=== PATIENT | female | born 1975 | race African-American/Black ===

== ENCOUNTER 2016-05-28 18:06 | Emergency (ER) | payer BC, MEDICAID, OTHER ==
[~2016-05-28] VITALS: Ht 170.2 cm; Wt 94.0 kg
[~2016-05-28 18:06] MED LIST: DOXY100T PO; LORTA5 PO; MOBI15TA PO; VIST25CA PO
[2016-05-28 18:12] VITALS: BP 131/88; PULSE 86; RESP 18; TEMP 98.4; O2SAT 98
--- NOTE | 2016-05-28 18:42 | PD ---
HPI Chief Complaint: Skin Problem Time Seen by Provider: 18:42 Travel History International Travel<30 days: No Contact w/Intl Traveler<30days: No Traveled to known affect area: No History of Present Illness HPI 41-year-old female presents to the ED for evaluation at 2 day history of itching of the inner thighs and left arm. 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 She states that the rashes on the left inner thigh and the left wrist. She denies spreading of the rash, worsening of itch. She states that she's been treating with Eucerin cream with improvement of her itching symptoms however she just wanted to "be on the safe side." PFSH Past Medical History Anxiety: Yes GERD: Yes Hypertension: Yes Immunizations Current: Yes ?: Not LMP: 05/11/16 : 4 Para: 3 Miscarriage: 1 Tubal Ligation: Yes (2004) Social History Alcohol Use: Yes (SOCIAL) Tobacco Use: No Substance Use: No Allergies-Medications (Allergen,Severity, Reaction): Coded Allergies: Percocet (Verified Allergy, Severe, VOMITING,HIVES, 05/28/16) Reported Meds & Prescriptions Reported Meds & Active Scripts Active Mobic (Meloxicam) 15 Mg Tab 15 Mg PO DAILY Harris 5-325 mg (Hydrocodone-Acetaminophen 5-325 mg) 1 Tab 1 Tab PO Q6H PRN Doxycycline Hyclate 100 mg (Doxycycline Hyclate) 100 Mg Tab 1 Tab PO BID Reported Vistaril (Hydroxyzine Pamoate) 25 Mg Cap 25 Mg PO Q6H PRN Review of Systems Except as stated in HPI: all other systems reviewed are Neg Physical Exam Narrative GENERAL: Well-nourished, well-developed black female in no acute distress. SKIN: Warm and dry. There are 3-4 sub-mm pustular lesions on the left inner thigh. There are 4-5 3-4 mm maculopapular, blanching, erythematous lesions on the left wrist. No excoriations. No other distribution of the rash. HEAD: Normocephalic. EYES: No scleral icterus. No injection or drainage. NECK: Supple, trachea midline. No JVD or lymphadenopathy. CARDIOVASCULAR: Regular rate and rhythm without murmurs, gallops, or rubs. RESPIRATORY: Breath sounds equal bilaterally. No accessory muscle use. GASTROINTESTINAL: Abdomen soft, non-tender, nondistended. MUSCULOSKELETAL: No cyanosis, or edema. BACK: Nontender without obvious deformity. No CVA tenderness. Data Data Last Documented VS Vital Signs Date Time Temp Pulse Resp B/P Pulse Ox O2 Delivery O2 Flow Rate FiO2 05/28/16 18:12 98.4 86 18 131/88 98 MDM Medical Decision Making Medical Screen Exam Complete: Yes Emergency Medical Condition: Yes Differential Diagnosis Contact dermatitis versus heat rash versus scabies versus other Narrative Course 41-year-old female presents to the ED for evaluation at 2 day history of itching of the inner thighs and left arm. 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 She states that the rashes on the left inner thigh and the left wrist. She denies spreading of the rash, worsening of itch. She states that she's been treating with Eucerin cream with improvement of her itching symptoms however she just wanted to "be on the safe side." Vitals reviewed. Physical exam reveals a well appearing black female in no acute distress. T ere are 3-4 sub-mm pustular lesions on the left inner thigh. There are 4-5 3-4 mm maculopapular, blanching, erythematous lesions on the left wrist. No excoriations. No other distribution of the rash. This may be a heat rash but certainly not consistent with scabies. I offered the patient a permethrin prescription should her rash worsened however she declined. Patient's instructed to keep her skin clean and dry, use emollient-type creams, follow up with her primary care provider or a alteration manager. She indicated understanding of instructions and was amenable to plan of care. She stable and discharged home. 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 Take Benadryl as directed on label as needed for itching. Continue using emollients creams such as discussed. Follow-up with the alteration manager as needed. Return to the ED for any urgent or emergent medical condition. Disposition: 01 DISCHARGE HOME Condition: Stable Liz Townsend 20, 2017 18:42
== END 2016-05-28 19:23 | disposition home or self-care (01) ==
LOC: PHEFT 18:06
DX: R21 Rash and other nonspecific skin eruption (principal); I10 Essential (primary) hypertension; F41.9 Anxiety disorder, unspecified
CPT/HCPCS: 99282

== ENCOUNTER 2016-07-21 15:52 | Emergency (ER) | payer OTHER, BC, MEDICAID ==
[~2016-07-21] VITALS: Ht 175.3 cm; Wt 92.6 kg
[2016-07-21 16:03] VITALS: BP 170/104; PULSE 100; RESP 18; TEMP 100; O2SAT 98
[2016-07-21] MEDS ORDERED: ACETAMINOPHEN/HYDROcodone 325 MG/5 MG TAB PO ONE (17:00)
[2016-07-21] MEDS ORDERED: ORPHENADRINE CITRATE 100 MG SUSTAINED RELEASE TAB PO ONE (17:00)
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
[2016-07-21] MEDS ORDERED: IBUP-232 PO (17:33)
[2016-07-21] MEDS ORDERED: TRAM50TA PO (17:33)
[2016-07-21] MEDS ORDERED: ORPH100T99 PO (17:33)
[2016-07-21] MEDS ORDERED: KETOROLAC TROMETHAMINE 60 MG/2 ML (IM) VIAL IM ONE (17:45)
[2016-07-21 17:52] VITALS: BP 160/98
== END 2016-07-21 17:53 | disposition home or self-care (01) ==
LOC: PHEFT 15:52
DX: S80.12XA Contusion of left lower leg, initial encounter (principal); V43.52XA Car driver injured in collision with other type car in traffic accident, initial encounter
CPT/HCPCS: 72125; 96372; 99284; J1885; L0150

== ENCOUNTER 2016-07-24 12:35 | Emergency (ER) | payer OTHER, BC ==
[~2016-07-24] VITALS: Ht 175.3 cm; Wt 90.0 kg
[~2016-07-24 12:35] MED LIST changes: -DOXY100T PO; +IBUP-232 PO; -LORTA5 PO; -MOBI15TA PO; +ORPH100T99 PO; +TRAM50TA PO; -VIST25CA PO
[2016-07-24 12:37] VITALS: BP 138/68; PULSE 74; RESP 18; TEMP 98.5; O2SAT 100
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
[2016-07-24] MEDS ORDERED: PRED-503 PO (13:01)
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
== END 2016-07-24 13:21 | disposition home or self-care (01) ==
LOC: NEPK 12:35
DX: M54.12 Radiculopathy, cervical region (principal); I10 Essential (primary) hypertension
CPT/HCPCS: 99283

== ENCOUNTER 2016-07-26 21:43 | Emergency (ER) | payer BC, MEDICAID ==
[~2016-07-26] VITALS: Ht 175.3 cm; Wt 92.7 kg
[~2016-07-26 21:43] MED LIST changes: +PRED-503 PO
[2016-07-26 21:47] VITALS: BP 160/106; PULSE 108; RESP 16; TEMP 97.6; O2SAT 100
[2016-07-26 21:56] VITALS: BP 160/106; PULSE 108; RESP 16; TEMP 97.6; O2SAT 100
[2016-07-26 22:15] VITALS: BP 144/86; PULSE 88; RESP 18; O2SAT 99
[2016-07-26 22:28] VITALS: RESP 18; O2SAT 100
[2016-07-26] MEDS ORDERED: PANTOPRAZOLE SODIUM 40 MG VIAL IVP ONE (22:30)
[2016-07-26] MEDS ORDERED: ONDANSETRON HCL 4 MG/2 ML VIAL IVP ONE (22:30)
[2016-07-26] MEDS ORDERED: SODIUM CHLORIDE 0.9% FLUSH 10 ML FLUSH IV FLUSH PRN (22:30)
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
[2016-07-26 22:41] LABS: AUTOMATED NEUTROPHIL # 3.8 TH/MM3 (1.8-7.7); BASOPHIL % 0.6 % (0.0-2.0); EOSINOPHIL # 0.1 TH/MM3 (0-0.4); EOSINOPHIL % 1.3 % (0.0-4.0); HEMATOCRIT 42.6 % (35.0-46.0); HEMO FLAGS DIFF FINAL; LYMPH % 32.7 % (9.0-44.0); LYMPHOCYTE # 2.1 TH/MM3 (1.0-4.8); MEAN CELL VOLUME 86.2 FL (80.0-100.0); MEAN CORPUSCULAR HEMOGLOBIN 27.6 PG (27.0-34.0); MEAN CORPUSCULAR HGB CONC 32.1 % (32.0-36.0); NEUT % 59.4 % (16.0-70.0); PLATELET COUNT 209 TH/MM3 (150-450); RED BLOOD COUNT 4.95 MIL/MM3 (4.00-5.30); RED CELL DISTRIBUTION WIDTH 13.7 % (11.6-17.2); WHITE BLOOD COUNT 6.4 TH/MM3 (4.0-11.0)
[2016-07-26 22:49] LABS: CHLORIDE 102 MEQ/L (98-107); POTASSIUM 3.5 MEQ/L (3.5-5.1); SODIUM (NA) 140 MEQ/L (136-145)
[2016-07-26 22:53] LABS: ANION GAP 7 MEQ/L (5-15)
[2016-07-26 22:54] LABS: BLOOD UREA NITROGEN 12 MG/DL (7-18)
[2016-07-26 22:56] LABS: ALT (GPT) 30 U/L (10-53); AST (GOT) 26 U/L (15-37); GLOMERULAR FILTRATION RATE 114 ML/MIN (>89)
[2016-07-26 22:58] LABS: TOTAL BILIRUBIN ADULT 0.2 MG/DL (0.2-1.0)
[2016-07-26 22:59] LABS: ALKALINE PHOSPHATASE 78 U/L (45-117)
[2016-07-26] MEDS ORDERED: IOHEXOL 350 MG/ML 10 ML VIAL (for RAD DIAG) IV ONE (23:08)
--- NOTE | 2016-07-26 23:48 | RADHPO ---
EXAM DATE/TIME: 07/26/2016 23:08 [facility] COMPARISON: No previous studies available for comparison. INDICATIONS : Diffuse abdominal pain for two hours with nausea. IV CONTRAST: 95 cc Omnipaque 350 (iohexol) IV ORAL CONTRAST: No oral contrast ingested. RADIATION DOSE: 19.54 CTDIvol (mGy) MEDICAL HISTORY : Hypertension. Gastroesophageal reflux disease. SURGICAL HISTORY : Tubal ligation. ENCOUNTER: Initial ACUITY: 1 day PAIN SCALE: 5/10 LOCATION: Abdomen. TECHNIQUE: Volumetric scanning of the abdomen and pelvis was performed. Using automated exposure control and ad justment of the mA and/or kV according to patient size, radiation dose was kept as low as reasonably achievable to obtain optimal diagnostic quality images. FINDINGS: Lung bases are clear except dependent atelectasis. Small cyst anterior liver. No acute findings in th e liver, spleen, adrenals, kidneys or pancreas. There is no free fluid. No bowel obstruction. No joellen opathy. No acute bony abnormalities. There is some fluid attenuation in the uterus. CONCLUSION: 1. No acute findings within the abdomen or pelvis. Small hepatic cyst. No obstruction, free fluid or free air. Kevon Darby MD on July 26, 2016 at 23:43 Board Certified Radiologist. This report was verified electronically.
[2016-07-27 00:05] VITALS: BP 151/86; PULSE 86; RESP 18; O2SAT 99
[2016-07-27] MEDS ORDERED: DICYCLOMINE HCL 20 MG/2 ML VIAL IM ONE (00:15)
[2016-07-27 00:34] LABS: BLOOD, URINE SMALL (NEG); GLUCOSE,URINE NEG (NEG); KETONE, URINE NEG (NEG); NITRITE,URINE NEG (NEG); PH, URINE 7.5 (5.0-8.5)
[2016-07-27 00:46] LABS: COMMENT (UR) CULT NOT INDICATED; CULTURE IF INDICATED CULT NOT INDICATED; RBC, URINE 0-3 /hpf (0-3); SQUAMOUS EPITHELIAL CELL URINE > 8 /hpf (0-5); URINE COLOR YELLOW (YELLW/STRAW); WBC, URINE 0-2 /hpf (0-5)
[2016-07-27] MEDS ORDERED: KETOROLAC TROMETHAMINE 30 MG/ML (IVP) VIAL IV PUSH ONE (01:00)
[2016-07-27] MEDS ORDERED: ONDANSETRON HCL 4 MG/2 ML VIAL IV PUSH ONE (01:00)
[2016-07-27] MEDS ORDERED: HYDROmorphone HCL PF 1 MG/ML VIAL IV PUSH ONE (01:45)
[2016-07-27] MEDS ORDERED: SODIUM CHLOR 0.9% 1000 ML INJ 1,000 ML IV ONE (01:45)
[2016-07-27] MEDS ORDERED: LEVS0.123 PO (01:50)
[2016-07-27] MEDS ORDERED: TRAM50TA PO (01:50)
[2016-07-27] MEDS ORDERED: ZOFR4TAB3 SL (01:50)
[2016-07-27 02:07] VITALS: BP 120/81; PULSE 75; RESP 18; O2SAT 99
[2016-07-27 03:07] VITALS: BP 121/74; PULSE 74; RESP 18; O2SAT 99
--- NOTE | 2016-07-27 21:16 | EKG ---
Date Performed: 07/26/2016 Time Performed: 22:41:30 PTAGE: 41 years EKG: Sinus rhythm . Normal ECG PREVIOUS TRACING : 12/29/2012 16.48 Compared to prior tracing no significant change DOCTOR: Wally Bryant Interpretating Date/Time 07/27/2016 21:15:50
== END 2016-07-27 03:10 | disposition home or self-care (01) ==
LOC: PHED 21:43
DX: R10.84 Generalized abdominal pain (principal); K29.70 Gastritis, unspecified, without bleeding; I10 Essential (primary) hypertension
CPT/HCPCS: 74177; 80053; 81001; 83690; 84703; 85025; 93005; 96361; 96372; 96374; 96375; 96376; 99284; C9113; J0500; J1170; J1885; J2405; J7030; Q9967

== ENCOUNTER 2016-10-22 21:37 | Emergency (ER) | payer BC, MEDICAID ==
[~2016-10-22] VITALS: Ht 172.7 cm; Wt 93.2 kg
[~2016-10-22 21:37] MED LIST changes: +LEVS0.123 PO; +ZOFR4TAB3 SL
[2016-10-22 21:48] VITALS: BP 129/65; PULSE 80; RESP 16; TEMP 98.2; O2SAT 98
[2016-10-22 22:05] VITALS: O2SAT 99
[2016-10-22] MEDS ORDERED: SODIUM CHLOR 0.9% 1000 ML INJ 1,000 ML IV SCH (22:11)
[2016-10-22] MEDS ORDERED: ALUMINUM/MAGNESIUM/SIMETH 30 ML CUP PO ONE (22:15)
[2016-10-22] MEDS ORDERED: ONDANSETRON HCL 4 MG/2 ML VIAL IVP ONE (22:15)
[2016-10-22] MEDS ORDERED: SODIUM CHLORIDE 0.9% FLUSH 10 ML FLUSH IV FLUSH PRN (22:15)
[2016-10-22] MEDS ORDERED: LIDOCAINE VISCOUS 2% SOLN 15 ML UDC PO ONE (22:15)
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
[2016-10-22 22:45] VITALS: BP 125/81; PULSE 68; RESP 18; O2SAT 100
--- NOTE | 2016-10-22 22:55 | RADRPT ---
EXAM DATE/TIME: 10/22/2016 22:15 [facility] COMPARISON: CT ABDOMEN & PELVIS W CONTRAST, July 26, 2016, 23:08. INDICATIONS : Abdominal pain. MEDICAL HISTORY : Hypertension. Gastroesophageal reflux disease. SURGICAL HISTORY : Tubal ligation. ENCOUNTER: Initial ACUITY: 1 day PAIN SCORE: 4/10 LOCATION: Bilateral upper quadrant abdomen. FINDINGS: Supine and upright views of the abdomen were performed. The abdominal bowel gas pattern is normal. No air fluid levels are seen. No abnormal masses, calcifications, or organomegaly is seen. The visu alized lower lungs are clear. No evidence of free intraperitoneal gas. The osseous structures are u nremarkable. CONCLUSION: Benign-appearing abdomen. Edwin Preston MD on October 22, 2016 at 22:53 Board Certified Radiologist. This report was verified electronically.
[2016-10-22 23:32] LABS: CHLORIDE 104 MEQ/L (98-107); POTASSIUM 4.1 MEQ/L (3.5-5.1); SODIUM (NA) 139 MEQ/L (136-145)
[2016-10-22 23:37] LABS: ANION GAP 7 MEQ/L (5-15); AUTOMATED NEUTROPHIL # 3.4 TH/MM3 (1.8-7.7); BASOPHIL # 0.1 TH/MM3 (0-0.2); BASOPHIL % 1.6 % (0.0-2.0); BICARBONATE 28.3 MEQ/L (21.0-32.0); BLOOD UREA NITROGEN 12 MG/DL (7-18); EOSINOPHIL # 0.1 TH/MM3 (0-0.4); EOSINOPHIL % 1.2 % (0.0-4.0); HEMO FLAGS DIFF FINAL; LYMPH % 42.9 % (9.0-44.0); MEAN CELL VOLUME 86.9 FL (80.0-100.0); MEAN CORPUSCULAR HEMOGLOBIN 27.1 PG (27.0-34.0); MEAN CORPUSCULAR HGB CONC 31.2 % (32.0-36.0); MONO % 5.8 % (0.0-8.0); NEUT % 48.5 % (16.0-70.0); PLATELET COUNT 180 TH/MM3 (150-450); RED CELL DISTRIBUTION WIDTH 14.4 % (11.6-17.2)
[2016-10-22 23:40] LABS: ALT (GPT) 23 U/L (10-53); AST (GOT) 23 U/L (15-37); GLOMERULAR FILTRATION RATE 87 ML/MIN (>89)
[2016-10-22 23:42] LABS: TOTAL BILIRUBIN ADULT 0.2 MG/DL (0.2-1.0)
[2016-10-22 23:43] LABS: ALKALINE PHOSPHATASE 76 U/L (45-117)
[2016-10-22] MEDS ORDERED: FAMOTIDINE 20 MG/2 ML VIAL IV PUSH ONE (23:45)
[2016-10-22] MEDS ORDERED: PANTOPRAZOLE SODIUM 40 MG VIAL IVP ONE (23:45)
[2016-10-22] MEDS ORDERED: HYDROmorphone HCL PF 2 MG/ML VIAL IVS ONE (23:45)
[2016-10-23] MEDS ORDERED: ULTR50TA5 PO ×2 (00:14→00:27)
[2016-10-23] MEDS ORDERED: PRIL20TA2 PO (00:14)
[2016-10-23] MEDS ORDERED: ZOFR4TAB3 SL ×2 (00:14→00:27)
[2016-10-23 00:20] VITALS: BP 122/74; PULSE 75; RESP 18; O2SAT 100
[2016-10-23 00:40] VITALS: RESP 18
[2016-10-23 00:50] LABS: BLOOD, URINE SMALL (NEG); GLUCOSE,URINE NEG (NEG); KETONE, URINE NEG (NEG); NITRITE,URINE NEG (NEG)
[2016-10-23 00:55] LABS: URINE COLOR YELLOW (YELLW/STRAW)
[2016-10-23 00:57] LABS: COMMENT (UR) CULT NOT INDICATED; CULTURE IF INDICATED CULT NOT INDICATED; SQUAMOUS EPITHELIAL CELL URINE > 8 /hpf (0-5)
[2016-10-23 01:06] VITALS: BP 115/67
--- NOTE | 2016-10-23 07:37 | EKG ---
Date Performed: 10/22/2016 Time Performed: 23:01:54 PTAGE: 41 years EKG: Sinus rhythm WITH FIRST DEGREE AV BLOCK ABNORMAL ECG Compared to prior tracing no significant change PREVIOUS TRACING : 07/26/2016 22.41 DOCTOR: Romulo Elise Interpretating Date/Time 10/23/2016 07:35:32
== END 2016-10-23 01:26 | disposition home or self-care (01) ==
LOC: PHED 21:37
DX: K21.9 Gastro-esophageal reflux disease without esophagitis (principal); I10 Essential (primary) hypertension
CPT/HCPCS: 74020; 80053; 81001; 83690; 84703; 85025; 93005; 96361; 96374; 96375; 99285; C9113; J1170; J2405; J7030

== ENCOUNTER 2016-12-16 00:43 | Emergency (ER) | payer BC ==
[~2016-12-16] VITALS: Ht 170.2 cm; Wt 100.0 kg
[~2016-12-16 00:43] MED LIST changes: -IBUP-232 PO; -LEVS0.123 PO; -ORPH100T99 PO; -PRED-503 PO; +PRIL20TA2 PO; -TRAM50TA PO; +ULTR50TA5 PO
[2016-12-16 00:44] VITALS: BP 161/94; PULSE 86; RESP 16; TEMP 97.8; O2SAT 96
--- NOTE | 2016-12-16 04:32 | PD ---
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 She states that she has not noticed much bleeding and does want to make sure that the tampon was not still in the vagina. She denies any abdominal pains, fevers, or any other symptoms. Modifying Factors: None Associated Signs & Symptoms: Evaluation for vaginal foreign body Risk Factors: None PFSH Past Medical History Medical History: Unable to Obtain Anxiety: Yes High Cholesterol: Yes Diminished Hearing: No GERD: Yes Hypertension: Yes Immunizations Current: Yes Tetanus Vaccination: Unknown ?: Not : 4 Para: 3 Miscarriage: 1 Tubal Ligation: Yes (2004) Past Surgical History Surgical History: Unable to Obtain Social History Alcohol Use: No Tobacco Use: No Substance Use: No Allergies-Medications (Allergen,Severity, Reaction): Coded Allergies: acetaminophen (Unverified Allergy, Severe, VOMITING,HIVES, 12/16/16) clarithromycin (Unverified Allergy, Severe, Hives, 12/16/16) oxycodone (Unverified Allergy, Severe, VOMITING,HIVES, 10/23/16) Reported Meds & Prescriptions Reported Meds & Active Scripts Active Zofran Odt (Ondansetron Odt) 4 Mg Tab 4 Mg SL Q6HR PRN Ultram (Tramadol HCl) 50 Mg Tab 50 Mg PO Q4H PRN Prilosec (Omeprazole Magnesium) 20 Mg Tab 20 Mg PO DAILY PRN Review of Systems Except as stated in HPI: all other systems reviewed are Neg Physical Exam Narrative GENERAL: Well-developed middle age -[place] female patient currently none acute distress. Awake and oriented 3. SKIN: Focused skin assessment warm/dry. HEAD: Atraumatic. Normocephalic. EYES: Pupils equal and round. No scleral icterus. No injection or drainage. ENT: No nasal bleeding or discharge. Mucous membranes pink and moist. NECK: Trachea midline. No JVD. CARDIOVASCULAR: Regular rate and rhythm. No murmur appreciated. RESPIRATORY: No accessory muscle use. Clear to auscultation. Breath sounds equal bilaterally. GASTROINTESTINAL: Abdomen soft, non-tender, nondistended. Hepatic and splenic margins not palpable. GENITOURINARY: Normal external genitalia without lesions or erythema. Vaginal vault with small amount of blood and whitish drainage. Cervical os was closed without drainage. No cervical motion tenderness. Uterus nontender and nonenlarged. Bilateral adnexa nontender without masses. MUSCULOSKELETAL: No obvious deformities. No clubbing. No cyanosis. No edema. NEUROLOGICAL: Awake and alert. No obvious cranial nerve deficits. Motor grossly within normal limits. Normal speech. PSYCHIATRIC: Appropriate mood and affect; insight and judgment normal. Data Data Last Documented VS Vital Signs Date Time Temp Pulse Resp B/P (MAP) Pulse Ox O2 Delivery O2 Flow Rate FiO2 12/16/16 03:46 12/16/16 00:44 97.8 86 16 96 Room Air MDM Medical Decision Making Medical Screen Exam Complete: Yes Emergency Medical Condition: Yes Medical Record Reviewed: Yes Differential Diagnosis Vaginal foreign body evaluation Narrative Course I do not see any signs of obvious vaginal foreign body on evaluation. At this point, patient is released to follow-up to [employer]. Return for any worsening in discharge, abdominal pains, fevers, or new symptoms as needed. The patient states understanding. Diagnosis Primary Impression: Vaginal foreign body Patient Instructions: General Instructions, Normal Exam (ED) Departure Forms: Tests/Procedures Disposition: DISCHARGE HOME Condition: Stable Alexa Lopez MD Dec 16, 2016 04:32
== END 2016-12-16 03:47 | disposition home or self-care (01) ==
LOC: NEPE 00:43
DX: T19.2XXA Foreign body in vulva and vagina, initial encounter (principal)
CPT/HCPCS: 99282

== ENCOUNTER 2017-05-14 09:47 | Emergency (ER) | payer BC ==
[~2017-05-14] VITALS: Ht 170.2 cm; Wt 94.0 kg
[~2017-05-14 09:47] MED LIST changes: +TRAM50 PO; -ULTR50TA5 PO
[2017-05-14 09:49] VITALS: BP 151/71; PULSE 72; RESP 18; TEMP 98.3; O2SAT 100
--- NOTE | 2017-05-14 12:26 | PD ---
HPI Chief Complaint: Abdominal Pain Time Seen by Provider: 12:09 Travel History International Travel<30 days: No Contact w/Intl Traveler<30days: No Traveled to known affect area: No History of Present Illness HPI 42-year-old female presents to the emergency Department with complaint of right lower quadrant/pelvic cramping that started today while she was work. She started her menstrual cycle yesterday and has had never had cramps like this before. Says they're intermittent and come and go. Reports heavy bleeding, which is normal but she has noticed some small clots, which she has not noticed in the past during her menstrual cycle. Denies nausea, vomiting, diarrhea, fevers. Denies dysuria, vaginal discharge, vaginal odor. History of tubal ligation. Denies risk of . Rates pain 9/10 when it occurs. It occurs spontaneously. No known aggravating or relieving factors. Pain is intermittent. Described as stabbing when it comes. Primary care provider is Dr. santos. No known allergies. History of chronic back pain and anxiety. Has no other medical complaints. No other modifying factors or associated signs and symptoms. PFSH Past Medical History Anxiety: Yes High Cholesterol: Yes Diminished Hearing: No GERD: Yes Hypertension: Yes Immunizations Current: Yes ?: Not LMP: 05/2017 : 4 Para: 3 Miscarriage: 1 Tubal Ligation: Yes (2004) Social History Alcohol Use: No Tobacco Use: No Substance Use: No Allergies-Medications (Allergen,Severity, Reaction): Coded Allergies: No Known Allergies (Unverified , 05/14/17) Reported Meds & Prescriptions Reported Meds & Active Scripts Active Ibuprofen 800 Mg Tab 800 Mg PO Q6HR PRN Prilosec (Omeprazole Magnesium) 20 Mg Tab 20 Mg PO DAILY PRN Reported Valium (Diazepam) 5 Mg Tab 5 Mg PO DAILY PRN Simvastatin 5 Mg Tab 5 Mg PO DAILY Hydrocodon-Acetamin 7.5-325/15 (Hydrocodone/Acetaminophen) 7.5 Mg-325 Mg/15 Ml ( 15 Ml) Solution 7.5 Mg PO Q4-6H PRN Review of Systems Except as stated in HPI: all other systems reviewed are Neg Physical Exam Narrative GENERAL: Well-nourished, well-developed black female patient, in no acute distress; afebrile SKIN: Warm and dry. HEAD: Atraumatic. Normocephalic. EYES: Pupils equal and round. No scleral icterus. No injection or drainage. ENT: Mucosa pink and moist. Airway patent. NECK: Trachea midline. CARDIOVASCULAR: Regular rate and rhythm. No murmur appreciated. RESPIRATORY: No accessory muscle use. Clear to auscultation. Breath sounds equal bilaterally. GASTROINTESTINAL: Abdomen soft, tenderness on palpation to right lower quadrant , nondistended. Hepatic and splenic margins not palpable. Bowel sounds are active 4 quadrants. Nonrigid. No rebound tenderness. No guarding. BACK: No CVA tenderness. MUSCULOSKELETAL: No obvious deformities. No clubbing. No cyanosis. No edema. NEUROLOGICAL: Awake and alert. Oriented 3. No obvious cranial nerve deficits. Motor grossly within normal limits. Normal speech. PSYCHIATRIC: Appropriate mood and affect; insight and judgment normal. Data Data Last Documented VS Vital Signs Date Time Temp Pulse Resp B/P (MAP) Pulse Ox O2 Delivery O2 Flow Rate FiO2 05/14/17 12:52 99 05/14/17 09:49 98.3 72 18 151/71 (97) Orders Orders Complete Blood Count With Diff (05/14/17 10:57) Comprehensive Metabolic Panel (05/14/17 10:57) Urinalysis - C+S If Indicated (05/14/17 10:57) Ed Urine Pregnancytest Poc (05/14/17 10:57) Iv Access Insert/Monitor (05/14/17 10:57) Oxygen Administration (05/14/17 10:57) Oximetry (05/14/17 10:57) Lipase (05/14/17 10:57) Ct Abd/Pel W Iv Contrast(Rout) (05/14/17 12:18) Ketorolac Inj (Toradol Inj) (05/14/17 12:30) Iohexol 350 Inj (Omnipaque 350 Inj) (05/14/17 13:22) Morphine Inj (Morphine Inj) (05/14/17 14:45) Ondansetron Inj (Zofran Inj) (05/14/17 14:45) Sodium Chlor 0.9% 1000 Ml Inj (Ns 1000 M (05/14/17 14:45) Us Pelvis Comp W Doppler (05/14/17 ) Ed Discharge Order (05/14/17 16:35) Labs Laboratory Tests Test 3/6/18 11:45 05/14/17 11:55 Urine Color YELLOW Urine Turbidity HAZY Urine pH 5.5 Urine Specific [place] 1.035 Urine Protein 30 mg/dL Urine Glucose (UA) NEG mg/dL Urine Ketones NEG mg/dL Urine Occult Blood LARGE Urine Nitrite NEG Urine Bilirubin NEG Urine Urobilinogen LESS THAN 2.0 MG/DL Urine Leukocyte Esterase NEG Urine RBC /hpf Urine WBC 2 /hpf Urine Squamous Epithelial Cells 5 /hpf Urine Mucus MANY /lpf Microscopic Urinalysis Comment CULT NOT INDICATED White Blood Count 5.7 TH/MM3 Red Blood Count 4.61 MIL/MM3 Hemoglobin 13.1 GM/DL Hematocrit 40.4 % Mean Corpuscular Volume 87.8 FL Mean Corpuscular Hemoglobin 28.5 PG Mean Corpuscular Hemoglobin Concent 32.5 % Red Cell Distribution Width 14.9 % Platelet Count 223 TH/MM3 Mean Platelet Volume 9.5 FL Neutrophils (%) (Auto) 62.8 % Lymphocytes (%) (Auto) 30.1 % Monocytes (%) (Auto) 5.2 % Eosinophils (%) (Auto) 1.1 % Basophils (%) (Auto) 0.8 % Neutrophils # (Auto) 3.6 TH/MM3 Lymphocytes # (Auto) 1.7 TH/MM3 Monocytes # (Auto) 0.3 TH/MM3 Eosinophils # (Auto) 0.1 TH/MM3 Basophils # (Auto) 0.0 TH/MM3 CBC Comment DIFF FINAL Differential Comment Blood Urea Nitrogen 11 MG/DL Creatinine 0.70 MG/DL Random Glucose 83 MG/DL Total Protein 8.6 GM/DL Albumin 3.8 GM/DL Calcium Level 9.0 MG/DL Alkaline Phosphatase 71 U/L Aspartate Amino Transf (AST/SGOT) 14 U/L Alanine Aminotransferase (ALT/SGPT) 20 U/L Total Bilirubin 0.3 MG/DL Sodium Level 138 MEQ/L Potassium Level 3.6 MEQ/L Chloride Level 103 MEQ/L Carbon Dioxide Level 30.7 MEQ/L Anion Gap 4 MEQ/L Estimat Glomerular Filtration Rate 112 ML/MIN Lipase 65 U/L [facility] Medical Decision Making Medical Screen Exam Complete: Yes Emergency Medical Condition: Yes Medical Record Reviewed: Yes Differential Diagnosis Appendicitis, ovarian cyst, menstrual cramping Narrative Course 42-year-old female that is currently on her menstrual cycle with right lower quadrant/pelvic cramping that is intermittent. Reproducible right lower quadrant pain on physical exam. CBC, CMP, lipase, urinalysis, UPT ordered in triage. CT abdomen/pelvis ordered. Toradol ordered. 1300: CBC, CMP, lipase, urinalysis unremarkable. UPT negative. 1430: CT abdomen/pelvis concludes: Abdomen/Pelvis CT 05/14/17 1218 Signed Impressions: Service Date/Time: Sunday, May 14, 2017 13:17 - CONCLUSION: 1. Stable small left hepatic cyst. 2. Scattered diverticulosis of the sigmoid colon without inflammatory changes. 3. Stable CT scan compared to the prior study. Chi Nguyen MD Recommendation provided a copy of his CT report. Reexamination patient states that she was woke up due to the pain again. I discussed CT scan and lab results with Dr. Isbell and she recommended pelvic ultrasound. Pelvic ultrasound ordered. Morphine ordered. 1634: Pelvic ultrasound concludes: Normal examination for a patient of this age. Patient provided a copy of the ultrasound report. Ibuprofen prescribed for home. Instructed patient to follow up with gynecology. Instructed patient to follow up with primary care provider. Patient verbalizes understanding and agreement with treatment plan. Patient is medically cleared and stable for discharge. Discussed reasons to return to the emergency department. Patient agrees with treatment plan. The patients vital signs are stable and the patient is stable for outpatient follow-up and treatment. Patient discharged home, stable and in no acute distress. Diagnosis Primary Impression: Right lower quadrant abdominal pain Additional Impression: Heavy menses Qualified Codes: N92.0 - Excessive and frequent menstruation with regular cycle Referrals: [facility] [place] [employer] [facility] Primary Care Physician Patient Instructions: Abdominal Pain (ED), General Instructions, Menstruation ( GEN) Departure Forms: Tests/Procedures, Work Release Enter return to work date: May 16, 2017 Additional Instructions: Tylenol or ibuprofen as directed and as needed for pain Heating pad/ice to affected area to help reduce pain Avoid aggravating activity; increase activity as tolerated Follow-up with legal referee Follow-up with primary care provider Return to the emergency department immediately with worsening of symptoms Med/Other Pt SpecificInfo: Prescription(s) given Scripts Ibuprofen (Ibuprofen) 800 Mg Tab 800 MG PO Q6HR Y for PAIN, #30 TAB 0 Refills Prov: Milly Osullivan 05/14/17 Disposition: 01 DISCHARGE HOME Condition: Stable Milly Osullivan May 14, 2017 12:26
[2017-05-14] MEDS ORDERED: KETOROLAC TROMETHAMINE 30 MG/ML (IVP) VIAL IV PUSH ONE (12:30)
[2017-05-14 12:35] LABS: AUTOMATED NEUTROPHIL # 3.6 TH/MM3 (1.8-7.7); BASOPHIL % 0.8 % (0.0-2.0); EOSINOPHIL # 0.1 TH/MM3 (0-0.4); EOSINOPHIL % 1.1 % (0.0-4.0); HEMATOCRIT 40.4 % (35.0-46.0); HEMOGLOBIN 13.1 GM/DL (11.6-15.3); LYMPH % 30.1 % (9.0-44.0); LYMPHOCYTE # 1.7 TH/MM3 (1.0-4.8); MEAN CELL VOLUME 87.8 FL (80.0-100.0); MEAN CORPUSCULAR HEMOGLOBIN 28.5 PG (27.0-34.0); MEAN CORPUSCULAR HGB CONC 32.5 % (32.0-36.0); MEAN PLATELET VOLUME 9.5 FL (7.0-11.0); MONO % 5.2 % (0.0-8.0); MONOCYTE # 0.3 TH/MM3 (0-0.9); NEUT % 62.8 % (16.0-70.0); PLATELET COUNT 223 TH/MM3 (150-450); RED BLOOD COUNT 4.61 MIL/MM3 (4.00-5.30); RED CELL DISTRIBUTION WIDTH 14.9 % (11.6-17.2); WHITE BLOOD COUNT 5.7 TH/MM3 (4.0-11.0)
[2017-05-14 12:36] LABS: ALBUMIN 3.8 GM/DL (3.4-5.0); AST (GOT) 14 U/L (15-37); BICARBONATE 30.7 MEQ/L (21.0-32.0); BLOOD UREA NITROGEN 11 MG/DL (7-18); CHLORIDE 103 MEQ/L (98-107); GLOMERULAR FILTRATION RATE 112 ML/MIN (>89); GLUCOSE,RANDOM 83 MG/DL (74-106); SODIUM (NA) 138 MEQ/L (136-145)
[2017-05-14 12:39] LABS: ALKALINE PHOSPHATASE 71 U/L (45-117); ALT (GPT) 20 U/L (10-53); TOTAL BILIRUBIN ADULT 0.3 MG/DL (0.2-1.0); TOTAL PROTEIN 8.6 GM/DL (6.4-8.2)
[2017-05-14 12:43] LABS: BILIRUBIN, URINE NEG (NEG); BLOOD, URINE LARGE (NEG); GLUCOSE,URINE NEG (NEG); KETONE, URINE NEG (NEG); MUCUS URINE MANY /lpf (OCC); NITRITE,URINE NEG (NEG); PH, URINE 5.5 (5.0-8.5); SQUAMOUS EPITHELIAL CELL URINE 5 /hpf (0-5); URINE COLOR YELLOW (YELLW/STRAW); URINE LEUKOCYTE ESTERASE NEG (NEG)
[2017-05-14] MEDS ORDERED: HYDR1SOL6 PO (12:58)
[2017-05-14] MEDS ORDERED: DIAZ5 PO (12:58)
[2017-05-14] MEDS ORDERED: SIMV5TAB3 PO (12:58)
[2017-05-14] MEDS ORDERED: IOHEXOL 350 MG/ML 10 ML VIAL (for RAD DIAG) IVCONTRAST ONE (13:22)
--- NOTE | 2017-05-14 13:33 | RADRPT ---
EXAM DATE/TIME: 05/14/2017 13:17 [facility] COMPARISON: CT ABDOMEN & PELVIS W CONTRAST, July 26, 2016, 23:08. INDICATIONS : Right lower quadrant pain IV CONTRAST: 96 cc Omnipaque 350 (iohexol) IV ORAL CONTRAST: No oral contrast ingested. RADIATION DOSE: 9.54 CTDIvol (mGy) MEDICAL HISTORY : Hypertension. Gastroesophageal reflux disease. SURGICAL HISTORY : Tubal ligation. ENCOUNTER: Initial ACUITY: 1 day PAIN SCALE: 9/10 LOCATION: Right lower quadrant TECHNIQUE: Volumetric scanning of the abdomen and pelvis was performed. Using automated exposure control and ad justment of the mA and/or kV according to patient size, radiation dose was kept as low as reasonably achievable to obtain optimal diagnostic quality images. DICOM format image data is available electro nically for review and comparison. FINDINGS: LOWER LUNGS: The visualized lower lungs are clear. LIVER: Homogeneous density without lesion. Small stable hepatic cyst in the left lobe. There is no dilation of the biliary tree. No calcified gallstones. SPLEEN: Normal size without lesion. PANCREAS: Within normal limits. KIDNEYS: Normal in size and shape. There is no mass, stone or hydronephrosis. ADRENAL GLANDS: Within normal limits. VASCULAR: There is no aortic aneurysm. BOWEL/MESENTERY: The stomach, small bowel, and colon demonstrate no acute abnormality. There is no free intraperitone al air or fluid. The appendix is unremarkable. No inflammatory changes. A few scattered diverticula a re seen along the sigmoid colon. ABDOMINAL WALL: Within normal limits. RETROPERITONEUM: There is no lymphadenopathy. BLADDER: No wall thickening or mass. REPRODUCTIVE: Within normal limits. INGUINAL: There is no lymphadenopathy or hernia. MUSCULOSKELETAL: Within normal limits for patient age. No significant change compared to the prior exam. CONCLUSION: 1. Stable small left hepatic cyst. 2. Scattered diverticulosis of the sigmoid colon without inflammatory changes. 3. Stable CT scan compared to the prior study. Chi Nguyen MD on May 14, 2017 at 13:29 Board Certified Radiologist. This report was verified electronically.
[2017-05-14] MEDS ORDERED: IBUP1TAB7 PO (14:34)
[2017-05-14] MEDS ORDERED: MORPHINE SULFATE 4 MG/ML INJ IV PUSH ONE (14:45)
[2017-05-14] MEDS ORDERED: ONDANSETRON HCL 4 MG/2 ML VIAL IV PUSH ONE (14:45)
[2017-05-14] MEDS ORDERED: SODIUM CHLOR 0.9% 1000 ML INJ 1,000 ML IV ONE (14:45)
--- NOTE | 2017-05-14 16:25 | RADRPT ---
EXAM DATE/TIME: 05/14/2017 15:50 [facility] COMPARISON: CT ABDOMEN & PELVIS W CONTRAST, May 14, 2017, 13:17. INDICATIONS : Pelvic pain. MEDICAL HISTORY : Hypercholesterolemia. Hypertension. Gastroesophageal reflux disease. Anxiety. SURGICAL HISTORY : Tubal ligation. ENCOUNTER: Initial ACUITY: 1 day PAIN SCORE: 5/10 LOCATION: Bilateral pelvis MEASUREMENTS: UTERUS: 9.5 x 6.4 x 4.3 cm ENDOMETRIAL STRIPE: 10 mm RIGHT OVARY: 2.9 x 1.9 x 1.8 cm LEFT OVARY: 3.0 x 2.1 x 2.0 cm FINDINGS: UTERUS: The myometrium has homogeneous echotexture without mass. The endometrial cavity is empty. RIGHT OVARY: Ovary contains no mass or significant cystic lesion. LEFT OVARY: Ovary contains no mass or significant cystic lesion. MISCELLANEOUS: No free fluid. CONCLUSION: Normal examination for a patient of this age. Chi Nguyen MD on May 14, 2017 at 16:23 Board Certified Radiologist. This report was verified electronically.
[2017-05-14 16:43] VITALS: BP 142/78
== END 2017-05-14 16:45 | disposition home or self-care (01) ==
LOC: NEPD 09:47
DX: R10.31 Right lower quadrant pain (principal); N92.0 Excessive and frequent menstruation with regular cycle; K57.30 Diverticulosis of large intestine without perforation or abscess without bleeding; K21.9 Gastro-esophageal reflux disease without esophagitis; E78.00 Pure hypercholesterolemia, unspecified
CPT/HCPCS: 74177; 76856; 80053; 81001; 83690; 84703; 85025; 93975; 96374; 96375; 99285; J1885; J2270; J2405; J7030; Q9967